=== PATIENT | female | born 1990 | race Hispanic/Latino ===

== ENCOUNTER 2017-11-30 00:26 | Emergency (ER) | payer BC ==
[2017-11-30 01:19] LABS: BASOPHILS % (AUTO) 0.5 % (0.0-5.0); HEMATOCRIT 40.6 % (36-48); MEAN CORPUSCULAR HEMOGLOBIN 27.5 pg (27.0-33.0); MEAN CORPUSCULAR HGB CONC 32.2 g/dL (32.0-36.0); MEAN CORPUSCULAR VOLUME 85.3 fL (79-99); MONOCYTES % (AUTO) 8.5 % (3.0-13.0); PLATELET COUNT (AUTO) 354 K/uL (130-400); RED BLOOD CELL COUNT(AUTO) 4.77 MIL/uL (4.00-5.50); RED CELL DISTRIBUTION WIDTH 13.2 % (11.0-15.5); WHITE BLOOD COUNT (AUTO) 11.1 K/uL (4.8-10.8)
[2017-11-30 01:30] LABS: BILIRUBIN,URINE Negative (NEGATIVE); COLOR,URINE Yellow (YELLOW); GLUCOSE, URINE (UA) Negative (NEGATIVE); KETONES,URINE Negative (NEGATIVE); LEUKOCYTE ESTERASE ,URINE Negative (NEGATIVE); NITRATE,URINE Negative (NEGATIVE); OCCULT BLOOD,URINE Negative (NEGATIVE); PH,URINE 6.5 (5.0-8.0); PROTEIN,URINE Negative (NEGATIVE)
[2017-11-30 01:31] LABS: APPEARANCE,URINE CLEAR (CLEAR)
[2017-11-30 01:33] LABS: HCG,QUAL RESULT NEGATIVE (NEGATIVE)
[2017-11-30 01:37] LABS: CREATININE 0.8 mg/dL (0.5-1.5); POTASSIUM 3.6 mmol/L (3.5-5.1)
[2017-11-30] MEDS ORDERED: ONDANSETRON HCL 4 MG/2 ML VIAL ONE (01:41)
[2017-11-30] MEDS ORDERED: MORPHINE SULFATE 2 MG/ML 1ML SYG ONE (01:42)
[2017-11-30 01:57] LABS: ALBUMIN 4.1 g/dL (3.5-5.0); BILIRUBIN,DIRECT 0.1 mg/dL (0.0-0.3); BILIRUBIN,TOTAL 0.1 mg/dL (0.2-1.0); TOTAL PROTEIN, SERUM 7.8 g/dL (6.0-8.3)
== END 2017-11-30 04:44 | disposition home or self-care (01) ==
LOC: EDH 00:26
DX: N83.202 Unspecified ovarian cyst, left side (principal); Z91.041 Radiographic dye allergy status; Z91.013 Allergy to seafood; Z88.6 Allergy status to analgesic agent; Z90.49 Acquired absence of other specified parts of digestive tract; Z98.890 Other specified postprocedural states
CPT/HCPCS: 36415; 76856; 80048; 80076; 81003; 81025; 84702; 85025; 96374; 96375; 99285; J2405

== ENCOUNTER 2018-12-17 07:06 | Day surgery (SDC) | payer BC ==
[2018-12-16 11:40] VITALS: BP 140/92
[2018-12-16 12:31] LABS: BASOPHILS % (AUTO) 0.8 % (0.0-5.0); HEMATOCRIT 38.4 % (36-48); LYMPHOCYTES % (AUTO) 33.3 % (21.0-51.0); MEAN CORPUSCULAR HGB CONC 33.8 g/dL (32.0-36.0); NEUTROPHILS % (AUTO) 57.9 % (40.0-77.0); PLATELET COUNT (AUTO) 348 K/uL (130-400); RED BLOOD CELL COUNT(AUTO) 4.46 MIL/uL (4.00-5.50); RED CELL DISTRIBUTION WIDTH 13.2 % (11.0-15.5); WHITE BLOOD COUNT (AUTO) 10.4 K/uL (4.8-10.8)
[2018-12-17] VITALS (16 sets, daily range): BP systolic 121–162; BP diastolic 75–118
[~2018-12-17] VITALS: Ht 165.1 cm; Wt 98.6 kg
[2018-12-17] MEDS ORDERED: LACTATED RINGERS 1000ML 1,000 ML IV SCH (08:00)
[2018-12-17] MEDS ORDERED: CALDOLOR 800MG+NS 250ML 250 ML IV PRN (08:00)
[2018-12-17] MEDS ORDERED: BUPIVACAINE/PF 0.25% 30ML VIAL IJ ONE (09:56)
[2018-12-17] MEDS ORDERED: IOHEXOL-350 50ML VIAL IV ONE (10:09)
[2018-12-17] MEDS ORDERED: DEXAMETHASONE SOD PHOSPHATE 10MG/ML 1ML VIAL ONE (10:42)
[2018-12-17] MEDS ORDERED: LIDOCAINE PF 2% 5ML ABBOJECT ONE (10:42)
[2018-12-17] MEDS ORDERED: PROPOFOL 10 MG/ML 20ML VIAL IV ONE (10:43)
[2018-12-17] MEDS ORDERED: ROCURONIUM 10MG/1ML SYR 10 MG/ML ML ONE (10:43)
[2018-12-17] MEDS ORDERED: FENTANYL CITRATE PF 50 MCG/1 ML 2ML VIAL ONE ×4 (10:43→12:10)
[2018-12-17] MEDS ORDERED: MIDAZOLAM HCL 1 MG/ML 2ML VIAL ONE (10:43)
[2018-12-17] MEDS ORDERED: NEOSTIGMINE 5MG/5ML SYR IV ONE (10:43)
[2018-12-17] MEDS ORDERED: GLYCOPYRROLATE 1 MG/5 ML SYRINGE ONE (10:43)
[2018-12-17] MEDS ORDERED: EPHEDRINE SULFATE 50 MG/ML AMPULE ONE (11:39)
[2018-12-17] MEDS ORDERED: OCTYL 2-CYANOACRYLATE 1 EACH TP ONE (12:01)
[2018-12-17] MEDS ORDERED: MEPERIDINE-PF 25 MG/ML SYG ONE ×3 (12:09→12:45)
[2018-12-17] MEDS ORDERED: ONDANSETRON HCL 4 MG/2 ML VIAL ONE ×2 (12:19→12:59)
[2018-12-17] MEDS ORDERED: METOCLOPRAMIDE 10 MG/2 ML VIAL ONE (12:59)
--- NOTE | 2018-12-17 14:19 | NUR ---
PT. LEFT VIA WHEELCHAIR IN PVT CAR WITH MOM. D/C INSTRUCTIONS WERE GIVEN TO MOTHER. NO COMPLICATION UPON DC.
== END 2018-12-17 14:19 ==
LOC: DAH 07:06
DX: N92.0 Excessive and frequent menstruation with regular cycle (principal); N92.5 Other specified irregular menstruation; N84.0 Polyp of corpus uteri; N97.8 Female infertility of other origin; N83.8 Other noninflammatory disorders of ovary, fallopian tube and broad ligament; E66.9 Obesity, unspecified; Z68.36 Body mass index [BMI] 36.0-36.9, adult; Z88.5 Allergy status to narcotic agent; Z88.8 Allergy status to other drugs, medicaments and biological substances; Z91.013 Allergy to seafood; Z72.89 Other problems related to lifestyle; Z98.890 Other specified postprocedural states; Z90.49 Acquired absence of other specified parts of digestive tract; Z91.048 Other nonmedicinal substance allergy status; Z82.49 Family history of ischemic heart disease and other diseases of the circulatory system; Z83.3 Family history of diabetes mellitus
CPT/HCPCS: 36415; 49321; 58340; 74740; 84703; 85025; 86850; 86900; 86901; 88305; 96365; A4215 ×2; A4221; A4222; A4223; A4351; A4649; A4663; A4930; A6260; C1769 ×3; G0168; J1100; J1741; J2001; J2175 ×3; J2250; J2405 ×2; J2704; J2710; J2765; J3010 ×4; J3490 ×3; J7040; J7120; Q9967

== ENCOUNTER 2024-09-30 10:00 | Emergency (ER) | payer BC ==
[~2024-09-30] VITALS: Ht 162.6 cm; Wt 93.9 kg
[~2024-09-30 10:00] MED LIST: HYDR12.54 PO
--- NOTE | 2024-09-30 10:14 | NUR ---
[place] [employer] CALLED TO MAKE ANIMAL BITE REPORT.
--- NOTE | 2024-09-30 10:18 | NUR ---
[place] [employer] CALLED ADVISED FOR PATIENT TO CALL TO MAKE A REPORT WHEN SHE IS AT HOME. THEY AR EUNABLE TO GET A UNIT OUT THIS WAY
[2024-09-30] MEDS ORDERED: AMOX1TAB16 PO (10:27)
--- NOTE | 2024-09-30 10:27 | ERN ---
ED Note History of Present Illness Stated Complaint: DOG BITE Chief Complaint: Animal Bite Time Seen by MD: 10:19 Time Seen by Midlevel: 10:22 Dictation: 34 Year old female with a history of hypertension diabetes coming in with complaints of a dog bite to her left palm and scratches to the right upper arm. Patient states the stray dog was fighting with her dog, she does not know which abdomen was one that bit hurt. She is not current with the tetanus vaccine. Pending police Department two, make a report. Allergies: Coded Allergies: codeine (Unverified Allergy, Unknown, 12/16/18) povidone-iodine (Unverified Allergy, Unknown, 12/16/18) shellfish derived (Unverified Allergy, Unknown, 12/16/18) soap (Unverified Allergy, Unknown, 12/16/18) Home Meds Active Scripts Hydrochlorothiazide (Hydrochlorothiazide) 12.5 Mg Tablet, 1 TAB PO DAILY for 30 Days, #30 TAB 0 Refills Prov:AMBER IGLESIAS MD 06/23/24 Past Medical History Past Medical History: Diabetes-Type II, Hypertension Surgical History: Appendectomy, Other Surgical History Other: RT TOE LMP: Sep 20, 2024 Review of System Dictation Constitutional: Negative for fever,chills, and weight loss Eyes: Negative for injury, pain,redness, and discharge ENT: Negative for injury,pain or swelling Cardiovascular: Negative for chest pain, palpitations, and edema Respiratory: Negative for shortness of breath, cough, and wheezing, Abdomen/GI: Negative for abdominal pain, nausea, vomiting, diarrhea, and con stipation Back: Negative for injury and pain : Negative for injury, bleeding and discharge MS/Extremity: Negative for injury and deformity Skin: Dog bite to the left palm between the thumb and index finger, and superficial abrasions to the right upper arm Neuro: Negative for headache, weakness, numbness, tingling, and seizure Psych: Negative for suicide ideation, homicidal ideation, and hallucinations Review of Systems: was completed Initial Vital Sign VS Vital Signs Date Time Temp Pulse Resp B/P (MAP) Pulse Ox O2 Delivery O2 Flow Rate FiO2 09/30/24 10:01 98.6 96 20 166/99 99 Room Air 0 Physical Exam Dictation General: awake, alert, NAD Head/Face: Normocephalic, atraumatic Eyes: PERRL, EOMI, vision at baseline ENT: oral cavity clear, TMs clear, no signs of infection Neck: Trachea midline, supple, no nuchal rigidity Cardiovascular: RRR, normal S1/S2, No MRGs, no JVD Respiratory: CTAB, no respiratory distress, No rales or wheezes Abdomen: Soft, non-tender, non-distended, normal bowel sounds, no guarding or rebound. Skin: Dog bite to the left palm between the thumb and index finger, and superficial abrasions to the right upper arm MS/Extremity: Pulses equal, no cyanosis, neurovascular intact, FROM Neuro: COAx4, GCS 15, strength 5/5, CN 2-12 intact, normal cerebellar exam, normal gait, Psych: Normal behavior, mood, and affect normal ED Course ED Course Orders Procedure Category Date Status Time Tetanus,Diphtheria PHA 09/30/24 Logged Tox [Adult] (Diphther 10:30 Ketorolac PHA 09/30/24 Transmitted Tromethamine 15mg/Ml 10:22 Current Medications Medications (Trade) Dose Ordered Sig/Zoie Route PRN Reason Start Time Stop Time Status Last Admin Dose Admin Tetanus/ Diphtheria Toxoids Adsorbed (DiphthERIA-teTANUS TOXOID [ADULT]/ DECAVAC) 0.5 ml ONCE ONCE IM 09/30/24 10:30 09/30/24 10:31 UNV Vital Signs Date Time Temp Pulse Resp B/P (MAP) Pulse Ox O2 Delivery O2 Flow Rate FiO2 09/30/24 10:01 98.6 96 20 166/99 99 Room Air 0 Medical Decision Making MDM MDM: Dog bite to the left palm between the thumb and index finger, and superficial abrasions to the right upper arm. Discussed extensively on wound care on dog bites with the patient. Discussed to return to the hospital if she has any symptoms of infection. I will up to date her tetanus here in the ER with the pain medication and discharge her with the Augmentin. [place] the police department has a already been notified and they are on the way to make a police report. Differential diagnosis: Superficial abrasion, laceration, cellulitis, puncture wound Rationale: Tests considered and ordered secondary to shared decision making include: Previous outside records reviewed: Old ER visits. Risk of complication and/or morbidity or mortality of patient management: None Medications-Per medication reconciliation Need for hospitalization: Patient does not meet criteria for hospitalization. Need for emergency major/minor surgery: No There are no social concerns with this patient. Prescription drug management Prescriptions will include symptomatic care Patient's prior external medical records from other ER visits were reviewed by me as indicated. Prior testing and results from previous visits were reviewed. Prior tests were taken into account with medical decision making and resource utilization, independent historian/historians were used to obtain complete medical history. I independently interpreted the test that were performed, results were reviewed by me and considered findings on radiology if ordered. Medical management and examination interpretation discussions were had by me with other qualified healthcare professionals as indicated for the patient's care. DX & DISP Disposition: Discharge Departure Impression: Primary Impression: Dog bite Condition: Stable Scripts Amoxicillin/Potassium Clav (Amox Tr-K Clv 875-125 mg Tab) 875 Mg-125 Mg Tablet 1 TAB PO BID for 10 Days, #20 TAB 0 Refills Prov: THEA HU NP 09/30/24 Additional Instructions: Keep area clean and dry. If you have any symptoms or signs of infection please return to the hospital. Referrals: RA GILMORE (PCP) Time of Disposition: 10:25 I have reviewed the case, and I agree with, Diagnosis and Plan THEA HU NP Sep 30, 2024 10:27
[2024-09-30 11:04] VITALS: BP 151/73; PULSE 75; RESP 18; TEMP 98; O2SAT 99
== END 2024-09-30 11:05 | disposition home or self-care (01) ==
LOC: EDH 10:00
DX: S41.131A Puncture wound without foreign body of right upper arm, initial encounter (principal); E11.9 Type 2 diabetes mellitus without complications; I10 Essential (primary) hypertension; Z79.899 Other long term (current) drug therapy; Z88.5 Allergy status to narcotic agent; Z88.8 Allergy status to other drugs, medicaments and biological substances; Z90.49 Acquired absence of other specified parts of digestive tract; W54.0XXA Bitten by dog, initial encounter; Y93.89 Activity, other specified; Y92.89 Other specified places as the place of occurrence of the external cause; Y99.8 Other external cause status
CPT/HCPCS: 99284; 90714; 96372; 90471; J1885